=== PATIENT | female | born 1940 | race Caucasian/White ===

== ENCOUNTER 2017-07-17 08:40 | Emergency (ER) | payer OTHER ==
[~2017-07-17] VITALS: Ht 160 cm; Wt 63.6 kg
[~2017-07-17 08:40] MED LIST: HYDROCHLOROTH12.5 M3 PO; LASIX20 MG PO; LISINOPRIL20 MG PO; [UNRECOGNIZED DRUG - REMARK]
[2017-07-17 09:48] LABS: EOSINOPHIL (%) 0.2 % (0-5); HEMATOCRIT 32.3 % (36.0-46.0); IMMATURE GRANULOCYTE (%) 0.7 % (0.0-0.7); INSTRUMENT ABS NEUTROPHIL CT 3.2 K/uL; LYMPHOCYTE COUNT 0.5 K/uL (1.0-2.8); MCH 32.5 PG (29.0-34.0); MCHC 35.3 G/DL (30.0-36.0); MEAN PLAT.VOLUME 9.7 uM^3 (9.5-12.4); MONOCYTE (%) 14.4 % (3-12); MONOCYTE COUNT 0.6 K/uL (0-0.8); NEUTROPHIL (%) 73.8 % (45-76); NEUTROPHIL COUNT 3.2 K/uL (1.8-6.4); PLATELET COUNT 204 K/uL (156-360); RBC DIS.WIDTH-CV 11.5 % (11.8-14.6); RBC DIS.WIDTH-SD 38.6 % (39-53); RED BLOOD COUNT 3.51 M/uL (3.80-5.20); WHITE BLOOD COUNT 4.3 K/uL (4.1-10.2)
[2017-07-17 09:56] LABS: CHLORIDE 102 mEq/L (99-109); POTASSIUM 3.9 mEq/L (3.7-5.4); SODIUM 134 mEq/L (136-147)
[2017-07-17 09:58] LABS: GLUCOSE 209 mg/dL (70-99)
[2017-07-17 09:59] LABS: ANION GAP 14 MEQ/L (2-14)
[2017-07-17 10:01] LABS: GFR ESTIMATE (CALCULATED) > 59 mL/min/
[2017-07-17 10:02] LABS: UREA NITROGEN (BUN) 15 mg/dL (9-23)
[2017-07-17 11:06] VITALS: BP 118/88
== END 2017-07-17 11:16 | disposition home or self-care (01) ==
LOC: EME 08:40
PROVIDERS: Emergency Medicine
DX: T21.11XA Burn of first degree of chest wall, initial encounter (principal); Y84.2 Radiological procedure and radiotherapy as the cause of abnormal reaction of the patient, or of later complication, without mention of misadventure at the time of the procedure; Z85.3 Personal history of malignant neoplasm of breast; Z90.12 Acquired absence of left breast and nipple; I10 Essential (primary) hypertension; F17.200 Nicotine dependence, unspecified, uncomplicated
CPT/HCPCS: 80048; 85025; 99281; 99284